=== PATIENT | female | born 1980 | race Caucasian/White ===

== ENCOUNTER → 2016-11-06 | Outpatient (CLI) | payer OTHER ==
--- NOTE | 2016-11-07 08:58 | XR ---
Cervical spine HISTORY: Neck pain 6 views of the cervical spine There is no significant foraminal encroachment evident on oblique views. Cervical vertebral bodies sh ow preserved height and bone mineralization. Anterolisthesis grade 1 C2-3, C3-4 is likely physiologic . Disc spaces are maintained. Loss of lordosis may be due to muscle spasm. IMPRESSION: No fracture or subluxation. Additional findings above.
--- NOTE | 2016-11-07 08:59 | XR ---
Left shoulder HISTORY: Left shoulder pain 3 views of the left shoulder correlated to prior left shoulder dated 09 July 2012 Bone mineralization, joint spaces and alignment are maintained. Left lung apex as visualized is manuel l. There is no fracture or dislocation. IMPRESSION: Stable exam, no significant interval change, no abnormalities evident, shoulder MRI may b e of benefit.
== END | disposition home or self-care (01) ==
LOC: RADXRYALE 15:58
PROVIDERS: ATTEND Physician Assistant Medical
DX: M54.2 Cervicalgia (principal); M62.830 Muscle spasm of back; M25.512 Pain in left shoulder
CPT/HCPCS: 72050

== ENCOUNTER → 2018-09-10 | Outpatient (CLI) | payer OTHER ==
--- NOTE | 2018-09-10 16:29 | XR ---
EXAMINATION TYPE: XR ankle complete LT DATE OF EXAM: 09/10/2018 COMPARISON: NONE HISTORY: Pain TECHNIQUE: 3 views of the left ankle are submitted for evaluation. FINDINGS: There is no evidence for fracture or dislocation. Ankle mortise is intact. Soft tissues are within normal limits. IMPRESSION: 1. No evidence for acute fracture.
== END | disposition home or self-care (01) ==
LOC: RADXRYALE 15:21
PROVIDERS: ATTEND Physician Assistant Medical
DX: S86.002A Unspecified injury of left Achilles tendon, initial encounter (principal)

== ENCOUNTER → 2018-09-23 | Outpatient (CLI) | payer OTHER ==
--- NOTE | 2018-09-23 13:16 | XR ---
EXAMINATION TYPE: XR ankle complete LT DATE OF EXAM: 09/23/2018 COMPARISON: 05/19/2015 HISTORY: Pain FINDINGS: Three views of the ankle demonstrate the ankle mortise to be intact and symmetric. The joint spaces are preserved. The osseous structures are intact. Spur involving the Achilles insertion of the calc aneus noted. IMPRESSION: 1. No definite acute fracture or dislocation, if symptoms persist follow-up study in 7 to 10 days wou ld be suggested.
== END | disposition home or self-care (01) ==
LOC: RADXRYALE 11:54
PROVIDERS: ATTEND Physician Assistant Medical
DX: S86.002A Unspecified injury of left Achilles tendon, initial encounter (principal)

== ENCOUNTER → 2019-07-03 | Outpatient (CLI) | payer OTHER ==
--- NOTE | 2019-07-04 08:25 | US ---
EXAMINATION TYPE: US pelvic complete DATE OF EXAM: 07/03/2019 COMPARISON: NONE CLINICAL HISTORY: N94.6 Dysmenorrhea, R10.2 Pelvic Pain. Pelvic cramping, history of ovarian cysts TECHNIQUE: Transabdominal (TA) Date of LMP: 06/26/19 EXAM MEASUREMENTS: Uterus: 8.7 x 5.0 x 5.7 cm Endometrial Stripe: 0.4 cm Right Ovary: 2.5 x 1.6 x 1.6 cm Left Ovary: 3.5 x 1.6 x 2.2 cm 1. Uterus: Anteverted multiple fibroids with largest = 4.2 x 2.4 x 3.4cm at left anterior fundus 2. Endometrium: appears wnl 3. Right Ovary: follicles noted 4. Left Ovary: follicles noted Spectral, color and waveform doppler imaging shows good arterial and venous flow within the ovaries ; there is no evidence for ovarian torsion. 5. Bilateral Adnexa: appears wnl 6. Posterior cul-de-sac: wnl Urinary bladder is sonolucent. The posterior wall is normal. IMPRESSION: 1. Multiple Uterine fibroids
== END | disposition home or self-care (01) ==
LOC: RADUSMAIN 15:49
PROVIDERS: ATTEND Family Medicine
DX: D25.9 Leiomyoma of uterus, unspecified (principal)
CPT/HCPCS: 76856

== ENCOUNTER 2019-07-14 14:41 | Inpatient (IN) | payer OTHER ==
[2019-07-14] MEDS ORDERED: SODIUM CHLORIDE 0.9% 500 ML 500 ML IV STA (15:38)
[2019-07-14 15:48] LABS: Basophils # (A) 0.1 k/uL (0-0.2); Basophils % (A) 1 %; Eosinophils # (A) 0.2 k/uL (0-0.7); Eosinophils % (A) 2 %; HGB 14.1 gm/dL (11.4-16.0); Lymphocytes # (A) 2.7 k/uL (1.0-4.8); Lymphocytes % (A) 26 %; MCH 30.6 pg (25.0-35.0); MCHC 34.4 g/dL (31.0-37.0); MCV 89.2 fL (80.0-100.0); Mean Platelet Volume 6.4; Monocytes # (A) 0.4 k/uL (0-1.0); Monocytes % (A) 4 %; Neutrophils # (A) 7.1 k/uL (1.3-7.7); Neutrophils % (A) 66 %; Platelet Count 377 k/uL (150-450); RDW 13.5 % (11.5-15.5); WBC 10.7 k/uL (3.8-10.6)
[2019-07-14 15:57] LABS: ALT 27 U/L (9-52); AST 26 U/L (14-36); African American GFR (CKD) >90 (>60 ml/min/1.73 sqM); Albumin 4.2 g/dL (3.5-5.0); Alkaline Phosphatase 78 U/L (38-126); Anion Gap 10 mmol/L; Blood Urea Nitrogen 9 mg/dL (7-17); Calcium 9.4 mg/dL (8.4-10.2); Carbon Dioxide 25 mmol/L (22-30); Chloride 105 mmol/L (98-107); Glucose 101 mg/dL (74-99); Sodium 140 mmol/L (137-145); Total Bilirubin 0.6 mg/dL (0.2-1.3)
[2019-07-14 16:02] LABS: INR 0.9 (<1.2); Partial Thromboplastin Time 25.9 sec (22.0-30.0); Prothrombin Time 9.6 sec (9.0-12.0)
--- NOTE | 2019-07-14 16:13 | CT ---
EXAMINATION TYPE: CT brain wo con DATE OF EXAM: 07/14/2019 COMPARISON: None HISTORY: 39-year-old female left side numbness TECHNIQUE: Examination was done in axial plane without intravenous contrast. Coronal and sagittal r econstructions performed. CT DLP: 1099.4 mGycm Automated exposure control for dose reduction was used. FINDINGS: There is no evidence of acute intracranial hemorrhage, acute ischemic changes, mass, mass-effect, or extra-axial fluid collection. There is no effacement of cerebral sulci or basal subarachnoid cister ns. There is no hydrocephalus. There is no midline shift. Jones-white matter distinction is preserv ed. Trace mucosal thickening ethmoid air cells. Mastoid air cells well pneumatized. Orbits and globes are intact. IMPRESSION: No acute intracranial abnormality seen.
--- NOTE | 2019-07-14 18:37 | ED ---
General Adult HPI - General Chief complaint: Neuro Symptoms/Deficit Stated complaint: right side numbness Time Seen by Provider: 07/14/19 14:50 Source: patient, RN notes reviewed Mode of arrival: ambulatory Limitations: no limitations - History of Present Illness Initial comments: This is a 39-year-old female who states she is here today because she has numbness in her right side and weakness of her right leg. Patient states the numbness started in her third and fourth finger 3 weeks ago and has progressed up her arm and on the side of her face and then included numbness of the right leg. Patient states the weakness started a few days ago in her leg. Patient states the numbness is a tingly sensation not after complete loss of sensation. Patient states she also has that same tingling on her right thorax as well as her right flank. Patient denies any injury or trauma. Patient denies any fever chills. Patient denies any headache. Patient states he is able to move her right foot but it is much slower and with a lot less force on the left foot. Patient denies any visual disturbance or speech disturbance. - Related Data Home Medications Medication Instructions Recorded Confirmed No Known Home Medications 07/14/19 07/14/19 Allergies Allergy/AdvReac Type Severity Reaction Status Date / Time No Known Allergies Allergy Verified 07/14/19 15:59 Review of Systems ROS Statement: Those systems with pertinent positive or pertinent negative responses have been documented in the HPI. ROS Other: All systems not noted in ROS Statement are negative. Past Medical History Past Medical History: No Reported History History of Any Multi-Drug Resistant Organisms: None Reported Past Surgical History: Appendectomy Past Psychological History: No Psychological Hx Reported Smoking Status: Current every day smoker Past Alcohol Use History: Occasional Past Drug Use History: None Reported General Exam - General Exam Comments Initial Comments: GENERAL: Patient is well-developed and well-nourished. Patient is nontoxic and well- hydrated and is in mild distress. ENT: Neck is soft and supple. No significant lymphadenopathy is noted. Oropharynx is clear. Moist mucous membranes. Neck has full range of motion without eliciting any pain. EYES: The sclera were anicteric and conjunctiva were pink and moist. Extraocular movements were intact and pupils were equal round and reactive to light. Eyelids were unremarkable. PULMONARY: Unlabored respirations. Good breath sounds bilaterally. No audible rales rhonchi or wheezing was noted. CARDIOVASCULAR: There is a regular rate and rhythm without any murmurs gallops or rubs. ABDOMEN: Soft and nontender with normal bowel sounds. SKIN: Skin is clear with no lesions or rashes and otherwise unremarkable. NEUROLOGIC: Patient is alert and oriented x3. Cranial nerves II through XII are grossly intact. Patient has sensation of his right arm and leg but she states it doesn't feel the same as the left. Patient has weakness in his plantar and dorsiflexion as well as weakness lifting the right leg. MUSCULOSKELETAL: Normal extremities with adequate strength and full range of motion. Except the right leg is not as strong when doing the full range of motion LYMPHATICS: No significant lymphadenopathy is noted PSYCHIATRIC: Normal psychiatric evaluation. Limitations: no limitations Course Vital Signs 07/14/19 14:47 Temperature 98.3 F Pulse Rate 77 Respiratory 18 Rate Blood Pressure 125/75 O2 Sat by Pulse 98 Oximetry Medical Decision Making - Medical Decision Making CT of the brain shows no acute abnormality. Chest x-ray shows no acute abnormalities. I spoke with Dr. Sanchez agreed to admit the patient admitted the patient I wrote admitting orders - Lab Data Result diagrams: 07/14/19 15:01 07/14/19 15:01 Lab Results 07/14/19 07/14/19 07/14/19 Range/Units 15:01 15:01 15:01 WBC 10.7 H (3.8-10.6) k/uL RBC 4.60 (3.80-5.40) m/uL Hgb 14.1 (11.4-16.0) gm/dL Hct 41.0 (34.0-46.0) % MCV 89.2 (80.0-100.0) fL MCH 30.6 (25.0-35.0) pg MCHC 34.4 (31.0-37.0) g/dL RDW 13.5 (11.5-15.5) % Plt Count 377 (150-450) k/uL Neutrophils % 66 % Lymphocytes % 26 % Monocytes % 4 % Eosinophils % 2 % Basophils % 1 % Neutrophils # 7.1 (1.3-7.7) k/uL Lymphocytes # 2.7 (1.0-4.8) k/uL Monocytes # 0.4 (0-1.0) k/uL Eosinophils # 0.2 (0-0.7) k/uL Basophils # 0.1 (0-0.2) k/uL PT 9.6 (9.0-12.0) sec INR 0.9 (<1.2) APTT 25.9 (22.0-30.0) sec Sodium 140 (137-145) mmol/L Potassium 4.0 (3.5-5.1) mmol/L Chloride 105 (98-107) mmol/L Carbon Dioxide 25 (22-30) mmol/L Anion Gap 10 mmol/L BUN 9 (7-17) mg/dL Creatinine 0.59 (0.52-1.04) mg/dL Est GFR (CKD-EPI)AfAm >90 (>60 ml/min/1.73 sqM) Est GFR (CKD-EPI)NonAf >90 (>60 ml/min/1.73 sqM) Glucose 101 H (74-99) mg/dL Calcium 9.4 (8.4-10.2) mg/dL Total Bilirubin 0.6 (0.2-1.3) mg/dL AST 26 (14-36) U/L ALT 27 (9-52) U/L Alkaline Phosphatase 78 (38-126) U/L Troponin I (0.000-0.034) ng/mL Total Protein 7.0 (6.3-8.2) g/dL Albumin 4.2 (3.5-5.0) g/dL 07/14/19 Range/Units 15:01 WBC (3.8-10.6) k/uL RBC (3.80-5.40) m/uL Hgb (11.4-16.0) gm/dL Hct (34.0-46.0) % MCV (80.0-100.0) fL MCH (25.0-35.0) pg MCHC (31.0-37.0) g/dL RDW (11.5-15.5) % Plt Count (150-450) k/uL Neutrophils % % Lymphocytes % % Monocytes % % Eosinophils % % Basophils % % Neutrophils # (1.3-7.7) k/uL Lymphocytes # (1.0-4.8) k/uL Monocytes # (0-1.0) k/uL Eosinophils # (0-0.7) k/uL Basophils # (0-0.2) k/uL PT (9.0-12.0) sec INR (<1.2) APTT (22.0-30.0) sec Sodium (137-145) mmol/L Potassium (3.5-5.1) mmol/L Chloride (98-107) mmol/L Carbon Dioxide (22-30) mmol/L Anion Gap mmol/L BUN (7-17) mg/dL Creatinine (0.52-1.04) mg/dL Est GFR (CKD-EPI)AfAm (>60 ml/min/1.73 sqM) Est GFR (CKD-EPI)NonAf (>60 ml/min/1.73 sqM) Glucose (74-99) mg/dL Calcium (8.4-10.2) mg/dL Total Bilirubin (0.2-1.3) mg/dL AST (14-36) U/L ALT (9-52) U/L Alkaline Phosphatase (38-126) U/L Troponin I <0.012 (0.000-0.034) ng/mL Total Protein (6.3-8.2) g/dL Albumin (3.5-5.0) g/dL Disposition Clinical Impression: Cerebrovascular accident (CVA) Disposition: ADMITTED IP TO THIS HOSP Referrals: Beto Cortes DO [Primary Care Provider] - 1-2 days Time of Disposition: 19:04
--- NOTE | 2019-07-14 18:40 | XR ---
EXAMINATION TYPE: XR chest 2V DATE OF EXAM: 07/14/2019 COMPARISON: December 14, 2012 HISTORY: Altered mental status TECHNIQUE: Frontal and lateral views of the chest are obtained. FINDINGS: Heart and mediastinum are normal. Lungs are clear. Diaphragm is normal. Bony thorax appear s normal. IMPRESSION: Normal chest. No change.
[2019-07-14 20:41] VITALS: BMI 27.1
[2019-07-14] MEDS: traMADol 50 MG TAB PO PRN (21:57)
[2019-07-15] MEDS: traMADol 50 MG TAB PO PRN ×2 (06:19→14:56)
--- NOTE | 2019-07-15 10:25 | P.HPIM ---
History of Present Illness 39-year-old pleasant female came in with complains of numbness on the right side of the body which is started in the right fingers right hand and to the right side of the whole body including the face and now she states she has numbness on the left side of the body as well in the chest area. Patient is complaining of for pain in the neck and her chiropractor told her it may be a pinched nerve in the neck and she is comparing of back pain as well. Patient denied any visual symptoms denied any pain in the back of the eye doesn't have any history of multiple sclerosis in the past. Does have history of flulike symptoms about a week ago. Patient denied any headache denied any nausea vomiting. Neurology was consult that. Patient denied any other weakness anywhere in the body. Patient's symptoms are fairly persistent at this time Review of Systems REVIEW OF SYSTEMS: CONSTITUTIONAL: No fever, no malaise, no fatigue. HEENT: No recent visual problems or hearing problems. Denied any sore throat. CARDIOVASCULAR: No chest pain, orthopnea, PND, no palpitations, no syncope. PULMONARY: No shortness of breath, no cough, no hemoptysis. GASTROINTESTINAL: No diarrhea, no nausea, no vomiting, no abdominal pain. NEUROLOGICAL: As mentioned in HPI HEMATOLOGICAL: Denies any bleeding or petechiae. GENITOURINARY: Denies any burning micturition, frequency, or urgency. MUSCULOSKELETAL/RHEUMATOLOGICAL: Denies any joint pain, swelling, or any muscle pain. ENDOCRINE: Denies any polyuria or polydipsia. The rest of the 14-point review of systems is negative. Past Medical History Past Medical History: No Reported History History of Any Multi-Drug Resistant Organisms: None Reported Past Surgical History: Appendectomy Additional Past Surgical History / Comment(s): D&C 2017 Past Anesthesia/Blood Transfusion Reactions: No Reported Reaction Past Psychological History: No Psychological Hx Reported Smoking Status: Current some day smoker Past Alcohol Use History: Occasional Additional Past Alcohol Use History / Comment(s): smokes half a pack a day. Past Drug Use History: None Reported - Past Family History Father Family Medical History: Myocardial Infarction (DC) Mother Family Medical History: CVA/TIA Medications and Allergies Home Medications Medication Instructions Recorded Confirmed Type No Known Home Medications 07/14/19 07/14/19 History Allergies Allergy/AdvReac Type Severity Reaction Status Date / Time No Known Allergies Allergy Verified 07/14/19 15:59 Physical Exam Vitals: Vital Signs Temp Pulse Pulse Resp BP BP Pulse Ox 07/15/19 08:00 98.2 F 72 18 103/69 98 07/15/19 04:00 98.2 F 67 18 108/63 96 07/14/19 23:04 83 18 07/14/19 23:02 98.1 F 83 18 112/66 100 07/14/19 20:30 99.4 F 63 18 122/88 99 07/14/19 20:00 63 18 07/14/19 19:00 98.2 F 77 20 132/72 98 07/14/19 14:47 98.3 F 77 18 125/75 98 Intake and Output 07/14/19 07/15/19 07/15/19 22:59 06:59 14:59 Intake Total 480 Balance 480 Intake: Oral 480 Other: Voiding Method Toilet Toilet Toilet # Voids 1 Weight 78.78 kg PHYSICAL EXAMINATION: GENERAL: The patient is alert and oriented x3, not in any acute distress. Well developed, well nourished. HEENT: Pupils are round and equally reacting to light. EOMI. No scleral icterus. No conjunctival pallor. Normocephalic, atraumatic. No pharyngeal erythema. No thyromegaly. CARDIOVASCULAR: S1 and S2 present. No murmurs, rubs, or gallops. PULMONARY: Chest is clear to auscultation, no wheezing or crackles. ABDOMEN: Soft, nontender, nondistended, normoactive bowel sounds. No palpable organomegaly. MUSCULOSKELETAL: No joint swelling or deformity. EXTREMITIES: No cyanosis, clubbing, or pedal edema. NEUROLOGICAL: As mentioned in HPI SKIN: No rashes. Results CBC & Chem 7: 07/14/19 15:01 07/14/19 15:01 Labs: Abnormal Lab Results - Last 24 Hours (Table) 07/14/19 07/14/19 07/14/19 Range/Units 15: 15: 15: WBC 10.7 H (3.8-10.6) k/uL Glucose 101 H (74-99) mg/dL LDL Cholesterol, Calc 115 H (0-99) mg/dL HDL Cholesterol 39 L (40-60) mg/dL Thrombosis Risk Factor Assmnt - Choose All That Apply Any of the Below Risk Factors Present?: No Other Risk Factors: No Other congenital or acquired thrombophilia - If yes, enter type in comment: No Thrombosis Risk Factor Assessment Level: Very Low Risk Assessment and Plan Plan: -Numbness in the right side of the body: Patient has multiple other areas of focal weakness makes us suspicious for multiple sclerosis. Considering her back and neck pain, patient will need MRI with contrast of the head and cervical spine for: Spine. Neurology will evaluate the patient and will leave the decision of those tests to neurology. The other consideration is ascending radiculopathy from viral infection possibility is low. -Mild leukocytosis reactive no signs or symptoms of infection -Nicotine abuse: Counseling was provided -DVT prophylaxis early ambulation
[2019-07-15] MEDS: NICOTINE 14MG/24HR PATCH TRANSDERM SCH (12:04)
--- NOTE | 2019-07-15 13:41 | P.CNNES ---
History of Present Illness Consult date: 07/15/19 Reason for Consult: Concern for stroke Chief complaint: Right sided numbness and weakness History of Present Illness: REFERRING PHYSICIAN: Dr. Adelfo Schmdit HISTORY OF PRESENT ILLNESS: Thank you for allowing me to evaluate Ms. Gerard Peralta. Ms. Peralta is a 39-year-old woman with no known past medical history presenting with right-sided numbness and right leg weakness. Patient states that about 3 weeks ago, she started having numbness in her R finger tips and over the last 3 weeks, the numbness came to involve almost her entire body except her L face, LLE and L three fingers. On 07/03/19, patient went to the chiropractor and was told that the numbness was from her neck. A few days after this visit, patient had flu-like symptoms of body ache, diarrhea, fever, and low back pain (patient with hx of low back pain) and these symptoms went away after 2 days. Some people at work were sick along with the patient. Since last Sunday, she started feeling heaviness in her RLE. Patient denies any headache, nausea, vomiting, double/blurry vision, dizziness, urinary retention/incontinence, diarrhea/constipation. Pt denies ever having symptoms of vision changes, numbnes s, tingling or weakness in the past. Patient reports 1 miscarriage for which she needed a D&C. She has 1 daughter. No family history of clotting disorder. PAST MEDICAL HISTORY: None reported PAST SURGICAL HISTORY: Appendectomy HOME MEDICATIONS: Nonw ALLERGIES: NO KNOWN DRUG ALLERGIES SOCIAL HISTORY: Current every day smoker FAMILY HISTORY: No hx of MS, autoimmune disease. Mother had a hemorrhagic stroke at age 40. REVIEW OF SYSTEMS: The 14 systems are reviewed and no additional points are identified compared to the review of systems documented history and physical PHYSICAL EXAMINATION: VITAL SIGNS: T 98.2 HR 67 RR 18 BP 108/63 O2 sat 96% on room air GEN.: NAD, pleasant and cooperative HEENT: NCAT, sclera without icterus NECK: Supple SKIN AND EXTREMITIES: Warm to touch, no edema NEURO: MENTAL STATUS: Patient alert and oriented to self, place, time. Able to name the current president. Speech fluent, able to name and repeat, following all commands readily. No right and left disorientation, neglect. CRANIAL NERVES II THROUGH XII: II: Pupils are equal and reactive to light symmetrically. No afferent pupillary defect. Visual lomeli are intact. III, IV, : No ptosis. Extraocular movements full. No nystagmus. V: R face feels numb but intact to temperature and pinprick V1-3. VII. No clear facial asymmetry. VIII: Hearing intact to finger rub bilaterally. IX, X: Symmetric pa late elevation. XI: Shoulder shrug intact. XII: Tongue midline without fasciculation or atrophy. MOTOR: Normal bulk/tone. No pronator drift or tremor. Strength is 5/5 throughout all 4 extremities. SENSORY: Decreased to temperature, light touch and pinprick in b/l UE and LE, more distal than proximal. Sensation decreased to temperature and pinprick below T2 level in chest and abdomen but around T11/12 level in the back. Intact to vibration and proprioception. REFLEXES: 2+ LE 1+ UE. Toes are upgoing bilaterally. No clonus. Roby's is absent COORDINATION: Finger to nose and heel to grover intact. No dysmetria. GAIT: Narrow-based and stable. Able to toe/heel/tandem walk DIAGNOSTIC TESTING: LABORATORY: WBC 10.7 Hgb 14.1 Plt 377 Na 140 K 4.0 Cl 105 CO2 25 BUN 9 Cr 0.59 Glucose 101 AST 26 ALT 27 AlkPhos 78 Troponin <0.012 TC 170 LDL 115 HDL 39 TSH 1.090 IMAGING: CT head without contrast 07/14/2019: No acute intracranial abnormalities seen ASSESSMENT: Ms. Peralta is a 39-year-old woman with no known past medical history presenting with right-sided numbness and right leg weakness. Patient reports recent flu-li ke symptoms, but patient's symptoms appear to have began prior to having her flu-like symptoms. At this time, differential include transverse myelitis vs. new diagnosis of multiple sclerosis vs. possible AIDP although lower on the ddx at this time as her symptoms began with her R finger tip numbness with no ascending pattern and pt with no objective weakness. RECOMMENDATIONS: 1. MRI brain/c-spine/t-spine/l-spine w/ and w/o contrast 2. Will check vitamin D level 3. Neurology will continue to follow Past Medical History Past Medical History: No Reported History History of Any Multi-Drug Resistant Organisms: None Reported Past Surgical History: Appendectomy Additional Past Surgical History / Comment(s): D&C 2017 Past Anesthesia/Blood Transfusion Reactions: No Reported Reaction Past Psychological History: No Psychological Hx Reported Smoking Status: Current some day smoker Past Alcohol Use History: Occasional Additional Past Alcohol Use History / Comment(s): smokes half a pack a day. Past Drug Use History: None Reported - Past Family History Father Family Medical History: Myocardial Infarction (NM) Mother Family Medical History: CVA/TIA Medications and Allergies Home Medications Medication Instructions Recorded Confirmed Type No Known Home Medications 07/14/19 07/14/19 History Allergies Allergy/AdvReac Type Severity Reaction Status Date / Time No Known Allergies Allergy Verified 07/14/19 15:59 Physical Examination - Vital Signs Vital Signs: Vital Signs Temp Pulse Pulse Resp BP BP Pulse Ox 07/15/19 04:00 98.2 F 67 18 108/63 96 07/14/19 23:04 83 18 07/14/19 23:02 98.1 F 83 18 112/66 100 07/14/19 20:30 99.4 F 63 18 122/88 99 07/14/19 20:00 63 18 07/14/19 19:00 98.2 F 77 20 132/72 98 07/14/19 14:47 98.3 F 77 18 125/75 98 Intake and Output 07/14/19 07/15/19 07/15/19 22:59 06:59 14:59 Intake Total 480 Balance 480 Intake: Oral 480 Other: Voiding Method Toilet Toilet # Voids 1 Weight 78.78 kg Results - Laboratory Findings CBC and BMP: 07/14/19 15:01 07/14/19 15:01 Abnormal Lab Findings: Abnormal Labs 07/14/19 07/14/19 07/14/19 15:01 15:01 15:01 WBC 10.7 H Glucose 101 H LDL Cholesterol, Calc 115 H HDL Cholesterol 39 L
[2019-07-15 14:54] LABS: Hemoglobin A1C 5.6 % (4.0-6.0)
[2019-07-15] MEDS: IBUPROFEN 800 MG TAB PO PRN (21:37)
[2019-07-16] MEDS: IBUPROFEN 800 MG TAB PO PRN ×2 (05:27→21:36)
[2019-07-16] MEDS: NICOTINE 14MG/24HR PATCH TRANSDERM SCH (08:12)
[2019-07-16] MEDS ORDERED: ERGOCALCIFEROL 50,000 UNIT CAP PO SCH (09:00)
--- NOTE | 2019-07-16 09:55 | P.PN ---
Subjective 39-year-old the admitted with numbness in the right side of the body along with some areas in the left side concern is multiple sclerosis. Patient's MRIs are pending at this time patient will undergo cervical throat: Lumbar spine MRI along with the MRA of the head. Constitutional: Denied any fatigue denied any fever. Cardio vascular: denied any chest pain, palpitations Gastrointestinal denied any nausea vomiting Pulmonary: Denied any shortness of breath cough Neurologic continues to have tingling numbness All inpatient medications were reviewed and appropriate changes in these medications as dictated in the interval history and assessment and plan. Objective - Vital Signs Vital signs: Vital Signs Temp 98.0 F 07/16/19 04:00 Pulse 65 07/16/19 04:00 Resp 16 07/16/19 04:00 BP 104/52 07/16/19 04:00 Pulse Ox 99 07/16/19 04:00 Intake & Output 07/15/19 07/16/19 07/16/19 18:59 06:59 18:59 Intake Total 960 540 Balance 960 540 Weight 79.8 kg Intake: Oral 960 540 Other: Voiding Method Toilet Toilet # Voids 4 1 - Exam PHYSICAL EXAMINATION: GENERAL: The patient is alert and oriented x3, not in any acute distress. Well developed, well nourished. HEENT: Pupils are round and equally reacting to light. EOMI. No scleral icterus. No conjunctival pallor. Normocephalic, atraumatic. No pharyngeal erythema. No thyromegaly. CARDIOVASCULAR: S1 and S2 present. No murmurs, rubs, or gallops. PULMONARY: Chest is clear to auscultation, no wheezing or crackles. ABDOMEN: Soft, nontender, nondistended, normoactive bowel sounds. No palpable organomegaly. MUSCULOSKELETAL: No joint swelling or deformity. EXTREMITIES: No cyanosis, clubbing, or pedal edema. NEUROLOGICAL: As mentioned in HPI SKIN: No rashes. - Labs CBC & Chem 7: 07/14/19 15:01 07/14/19 15:01 Labs: Abnormal Lab Results - Last 24 Hours (Table) 07/14/19 Range/Units 15:01 Vitamin D 25-Hydroxy 25.5 L (30.0-100.0) ng/mL Assessment and Plan Plan: -Numbness in the right side of the body: Patient has multiple other areas of focal weakness makes us suspicious for multiple sclerosis. Considering her back and neck pain, patient will need MRI with contrast of the head and cervical sp ine for: Spine. Neurology evaluated the patient. The other consideration is ascending radiculopathy from viral infection possibility is low. Will undergo MRI today. -Mild leukocytosis reactive no signs or symptoms of infection -Nicotine abuse: Counseling was provided -DVT prophylaxis early ambulation
--- NOTE | 2019-07-16 12:21 | P.PN ---
Progress Note - Text Progress Note Date: 07/16/19 SUBJECTIVE/INTERVAL EVENTS: No acute overnight event. Patient with no worsening numbness, tingling or weakness. Patient is anxious about getting her MRI done today PHYSICAL EXAMINATION: VITAL SIGNS: T 97.8 HR 60 RR 20 BP 132/73 O2 sat 96% on RA GEN.: NAD, pleasant and cooperative HEENT: NCAT, sclera without icterus NECK: Supple SKIN AND EXTREMITIES: Warm to touch, no edema NEURO: MENTAL STATUS: Patient alert and oriented to self, place, time. Able to name the current president. Speech fluent, able to name and repeat, following all commands readily. No right and left disorientation, neglect. CRANIAL NERVES II THROUGH XII: II: Pupils are equal and reactive to light symmetrically. No afferent pupillary defect. Visual lomeli are intact. III, IV, : No ptosis. Extraocular movements full. No nystagmus. V: R face feels numb but intact to temperature and pinprick V1-3. VII. No clear facial asymmetry. VIII: Hearing intact to finger rub bilaterally. IX, X: Symmetric palate elevation. XI: Shoulder shrug intact. XII: Tongue midline without fasciculation or atrophy. MOTOR: Normal bulk/tone. No pronator drift or tremor. Strength is 5/5 throughout all 4 extremities. SENSORY: Decreased to temperature, light touch and pinprick in b/l UE and LE, more distal than proximal. Sensation decreased to temperature and pinprick below T2 level in chest and abdomen but around T11/12 level in the back. Intact to vibration and proprioception. REFLEXES: 2+ LE 1+ UE. Toes are upgoing bilaterally. No clonus. Roby's is absent COORDINATION: Finger to nose and heel to grover intact. No dysmetria. GAIT: Narrow-based and stable. Able to toe/heel/tandem walk DIAGNOSTIC TESTING: LABORATORY: WBC 10.7 Hgb 14.1 Plt 377 Na 140 K 4.0 Cl 105 CO2 25 BUN 9 Cr 0.59 Glucose 101 AST 26 ALT 27 AlkPhos 78 Troponin <0.012 TC 170 LDL 115 HDL 39 TSH 1.090 Vitamin D level 25.5 IMAGING: CT head without contrast 07/14/2019: No acute intracranial abnormalities seen ASSESSMENT: Ms. Peralta is a 39-year-old woman with no known past medical history presenting with right-sided numbness and right leg weakness. Patient reports recent flu- like symptoms, but patient's symptoms appear to have began prior to having her flu-like symptoms. At this time, differential include transverse myelitis vs. new diagnosis of multiple sclerosis vs. possible AIDP although lower on the ddx at this time as her symptoms began with her R finger tip numbness with no ascending pattern and pt with no objective weakness. RECOMMENDATIONS: 1. MRI brain/c-spine/t-spine/l-spine w/ and w/o contrast 2. Low Vitamin D level; will start Vitamin D2 supplementation 3. Neurology will continue to follow
[2019-07-16] MEDS ORDERED: HYDROcodone/APAP 7.5-325MG 1 EACH TAB PO ONE (13:16)
--- NOTE | 2019-07-16 13:34 | MR ---
EXAMINATION TYPE: MR walker/smooth wo con DATE OF EXAM: 07/16/2019 1:04 PM COMPARISON: NONE HISTORY: Numbness involving b/l UE and LE and trunk Multiplanar MultiSpin echo imaging of the thoracic spine was performed. Disc spaces: No evidence for herniation protrusion or significant degenerative disc disease. Spinal canal: No evidence for canal stenosis. No intrinsic or extrinsic lesion. Thoracic spinal cord: Subtle T2 lesion noted within the thoracic spinal cord at the approximate T9-T1 0 level measuring 1.3 cm in length and 4.5 mm AP dimension. This could reflect a plaque of demyelinat ion however lesion is difficult to exclude. Contrast-enhanced evaluation is advised. No additional co rd lesions are suspected at this time. Paraspinal soft tissues: No evidence for paraspinal mass. No destructive lesions seen. Vertebral segments: No evidence for fracture. Small TA T meningioma identified. IMPRESSION: 1. I recommend contrast enhanced evaluation of the thoracic spine for a subtle T2 lesions noted at th e T9 level as discussed above. EXAMINATION TYPE: MR davalos wo con DATE OF EXAM: 07/16/2019 1:04 PM COMPARISON: NONE HISTORY: Numbness involving b/l UE and LE and trunk Multiplanar, MultiSpin echo imaging of the lumbar spine was performed. L1-L2: Normal disc appearance without desiccation. No herniation, protrusion or disc bulging. No ca nal stenosis is present. Foramina are patent bilaterally. L2-L3: Normal disc appearance without desiccation. No herniation, protrusion or disc bulging. No ca nal stenosis is present. Foramina are patent bilaterally. L3-L4: Normal disc appearance without desiccation. No herniation, protrusion or disc bulging. No ca nal stenosis is present. Foramina are patent bilaterally. L4-L5: Moderate disc desiccation. Disc protrusion noted posteriorly centrally. Mild effacement ventra l thecal sac. No evidence for central stenosis or foraminal encroachment. L5-S1: Normal disc appearance without desiccation. No herniation, protrusion or disc bulging. No ca nal stenosis is present. Foramina are patent bilaterally. Lumbar segments are intact. No paraspinal masses are identified. Conus medullaris has a normal appe arance. IMPRESSION: 1. Disc desiccation and mild protrusion at L4-5.
--- NOTE | 2019-07-16 15:15 | MR ---
EXAMINATION TYPE: MR brain/cspine wo/w DATE OF EXAM: 07/16/2019 COMPARISON: CT brain July 14, 2019 HISTORY: Patient presents with numbness in extremities and trunk, severe back pain. Concern for MS TECHNIQUE: Multiplanar, multisequence images of the brain and brainstem cervical spine are all performed without and with IV contrast, utilizing 7.5 mL intravenous Gadavist gadolinium contrast is administered intr avenously. Demyelinating disease protocol with additional Sagittal Flair sequence performed of brain and brainstem and PD sagittal sequences cervical spine all acquired.. FINDINGS: BRAIN: T2 Lesions Present : Yes Approximate Number of Lesions: 2-4 Size of Reference Lesion(s): 1. 2 mm focus right frontal deep white matter axial image 24 and sagittal image 22 2 second 2 mm focus right parietal white matter axial image 22 and sagittal image 29. Enhancing Lesio n(s) Present: No T1 Hypointense Lesion(s) Present: No Change from Prior: N/A Diffusion weighted images demonstrate no evidence of a recent infarct or other diffusion abnormality. There is no worrisome extra-axial fluid collection. The ventricular system and cisternal spaces ar e normal in size and appearance. The brain volume is age appropriate. Midline structures demonstrate normal morphology. The craniocervical junction appears within normal limits. Post contrast images demonstrate no abnormal enhancement. The dural venous sinuses appear pa tent. The visualized sinuses are clear and the globes are intact. IMPRESSION: Minimal nonspecific white matter changes. No suspicious enhancement. MRI CERVICAL SPINE: FINDINGS: Sagittal images of the cervical spine show the craniocervical junction to appear within nor mal limits. The cervical and upper thoracic spinal cord is normal in course and caliber. . There is faint T2 hyperintense lesion posterior inferior C2 level sagittal image 7. There is some heterogenei ty may be elevation of motion or CSF pulsation artifact without definitive additional focal lesion. A lignment is anatomic. The vertebral body and intravertebral disk heights are normal. The bone marro w signal intensity is within normal limits. No suspicious enhancement is seen. Axial images at C4-C5 level show right foraminal spur disc complex causing asymmetric mild right-side d neural foraminal narrowing acknowledged 32 corresponding to sagittal image 9. Axial images at C5-C6 levels from broad-based posterior disc protrusion minimally effacing anterior t hecal sac and causing moderate left and mild right-sided neural foraminal narrowing. Remainder cervic al levels but within normal limits on axial images. Subtle posterior lesion inferior C2 level midline axial image 48 is confirmed. IMPRESSION: Cervical cord lesion posterior inferior C2 level. No enhancing lesions are evident.
[2019-07-16] MEDS ORDERED: PANTOPRAZOLE 40 MG TABLET PO STA (16:23)
[2019-07-16] MEDS ORDERED: methylPREDNISolone SOD SUCC 1,000 MG in SODIUM CHLORIDE 0.9% 250 ML IVPB STA (16:24)
[2019-07-16 19:00] LABS: Glucose,Whole Blood 109 mg/dL (75-99)
[2019-07-16] MEDS: traMADol 50 MG TAB PO PRN (23:57)
[2019-07-16] MEDS: MAGNESIUM HYDROXIDE 2,400 MG/10 ML CUP PO PRN (23:59)
[2019-07-17] MEDS ORDERED: HYDROcodone/APAP 5-325MG 1 EACH TAB PO STA (00:07)
[2019-07-17 04:00] LABS: Glucose,Whole Blood 156 mg/dL (75-99)
[2019-07-17 06:18] LABS: Glucose,Whole Blood 146 mg/dL (75-99)
[2019-07-17] MEDS: MAGNESIUM HYDROXIDE 2,400 MG/10 ML CUP PO PRN (06:53)
[2019-07-17] MEDS: INSULIN ASPART (NovoLOG) 100 UNIT/ML VIAL SQ SCH ×3 (08:41→18:23)
[2019-07-17] MEDS: NICOTINE 14MG/24HR PATCH TRANSDERM SCH (09:40)
[2019-07-17] MEDS ORDERED: methylPREDNISolone SOD SUCC 1,000 MG in SODIUM CHLORIDE 0.9% 250 ML IVPB STA (11:10)
--- NOTE | 2019-07-17 11:16 | P.PN ---
Progress Note - Text Progress Note Date: 07/17/19 SUBJECTIVE/INTERVAL EVENTS: No acute overnight event. Patient was started on high-dose steroids yesterday. Patient states that her back pain has gotten worse, but the numbness in her RLE is improving. PHYSICAL EXAMINATION: VITAL SIGNS: T 97.8 HR 60 RR 20 BP 132/73 O2 sat 96% on RA GEN.: NAD, pleasant and cooperative HEENT: NCAT, sclera without icterus NECK: Supple SKIN AND EXTREMITIES: Warm to touch, no edema NEURO: MENTAL STATUS: Patient alert and oriented to self, place, time. Able to name the current president. Speech fluent, able to name and repeat, following all commands readily. No right and left disorientation, neglect. CRANIAL NERVES II THROUGH XII: II: Pupils are equal and reactive to light symmetrically. No afferent pupillary defect. Visual lomeli are intact. III, IV, : No ptosis. Extraocular movements full. No nystagmus. V: R face feels numb but intact to temperature and pinprick V1-3. VII. No clear facial asymmetry. VIII: Hearing intact to finger rub bilaterally. IX, X: Symmetric palate elevation. XI: Shoulder shrug intact. XII: Tongue midline without fasciculation or atrophy. MOTOR: Normal bulk/tone. No pronator drift or tremor. Strength is 5/5 throughout all 4 extremities. SENSORY: Decreased to temperature, light touch and pinprick in b/l UE and LE, more distal than proximal. Sensation decreased to temperature and pinprick below T2 level in chest and abdomen but around T11/12 level in the back. Intact to vibration and proprioception. REFLEXES: 2+ LE 1+ UE. Toes are upgoing bilaterally. No clonus. Roby's is absent COORDINATION: Finger to nose and heel to grover intact. No dysmetria. GAIT: Narrow-based and stable. Able to toe/heel/tandem walk DIAGNOSTIC TESTING: LABORATORY: WBC 10.7 Hgb 14.1 Plt 377 Na 140 K 4.0 Cl 105 CO2 25 BUN 9 Cr 0.59 Glucose 101 AST 26 ALT 27 AlkPhos 78 Troponin <0.012 TC 170 LDL 115 HDL 39 TSH 1.090 Vitamin D level 25.5 IMAGING: MRI brain and cervical spine with and without contrast 07/16/2019: Minimal nonspecific white matter changes in the brain. No suspicious enhancement. Cervical cord lesion posterior inferior C2 level. No enhancing lesions are evident. MRI thoracic and lumbar spine without contrast 07/16/2019: Subtle T2 lesions noted at the T9 level. CT head without contrast 07/14/2019: No acute intracranial abnormalities seen ASSESSMENT: Ms. Peralta is a 39-year-old woman with no known past medical history presenting with right-sided numbness and right leg weakness. Patient reports recent flu- like symptoms, but patient's symptoms appear to have began prior to having her flu-like symptoms. At this time, differential include transverse myelitis vs. new diagnosis of multiple sclerosis vs. possible AIDP although lower on the ddx at this time as her symptoms began with her R finger tip numbness with no ascending pattern and pt with no objective weakness. MRI brain/c-spine/t-spine/l-spine (only brain and c-spine were done with contrast), showing subtle T2 hyperintense lesion in C2 and T9 level. Ddx at this time remains the same. RECOMMENDATIONS: 1. High dose methylprednisolone 1g IV x3-5 days; will decide duration depending on patient's symptom change. Pt would like to get steroids on outpatient basis. I will contact patient while patient's getting her steroids to follow her progress. 2. q6h blood glucose check; PPI 3. LP today for CSF studies 4. Low Vitamin D level; will start Vitamin D2 supplementation 5. Neurology will continue to follow
[2019-07-17 11:55] LABS: Glucose,Whole Blood 163 mg/dL (75-99)
--- NOTE | 2019-07-17 13:46 | P.DS ---
Providers Date of admission: 07/14/19 19:06 Attending physician: Krys Sanchez Consults: 07/14/19 19:05 Consult Physician Routine Consulting Provider: Tiara Grimes Reason/Comments: CVA Do you want consulting provider notified?: Yes [facility] Course: 39-year-old the admitted with numbness in the right side of the body along with some areas in the left side concern is multiple sclerosis. Patient's MRIs are pending at this time patient will undergo cervical throat: Lumbar spine MRI along with the MRA of the head. 07/17/2019 Patient had an MRA of the spine which showed hyper intense lesion on T2 and cervical area the differentials include transverse myelitis, multiple sclerosis cannot be ruled out acute inflammatory demyelinating polyneuritis is another consideration. Neurology validate the patient and they're recommending IV steroids for total nephritis patient received 2 days patient will come back to the infusion center for 3 more days and follow with neurology as an outpatient. Patient's vitamin D levels or minimally lower 25 patient is being discharged on vitamin D supplementation patient also has couple areas in the thoracolumbar spine area and cervical spine area where she had a degenerative arthritis and bony spurs which is contributing to her pain which is expected to improve with the systemic steroids patient will also be discharged on GI prophylaxis. Neurologist at morning CSF analysis and patient will be discharged after lumbar puncture. PHYSICAL EXAMINATION: GENERAL: The patient is alert and oriented x3, not in any acute distress. Well developed, well nourished. HEENT: Pupils are round and equally reacting to light. EOMI. No scleral icterus. No conjunctival pallor. Normocephalic, atraumatic. No pharyngeal erythema. No thyromegaly. CARDIOVASCULAR: S1 and S2 present. No murmurs, rubs, or gallops. PULMONARY: Chest is clear to auscultation, no wheezing or crackles. ABDOMEN: Soft, nontender, nondistended, normoactive bowel sounds. No palpable organomegaly. MUSCULOSKELETAL: No joint swelling or deformity. EXTREMITIES: No cyanosis, clubbing, or pedal edema. NEUROLOGICAL: As mentioned in HPI SKIN: No rashes. 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 Ergocalciferol [Vitamin D2 (DRISDOL)] 50,000 unit PO Q72H #14 cap Discharge Medication List Ergocalciferol [Vitamin D2 (DRISDOL)] 50,000 unit PO Q72H #14 cap 07/17/19 [Rx] Omeprazole [PriLOSEC] 40 mg PO AC-BRKFST #5 capsule. 07/17/19 [Rx] Follow up Appointment(s)/Referral(s): Stefany Walls MD [STAFF PHYSICIAN] - 08/01/19 9:00 am (Sunday) Beto Cortes DO [Primary Care Provider] - 07/22/19 1:20 pm (Sunday with Caroline) Patient Instructions/Handouts: Lumbar Puncture (DC) Activity/Diet/Wound Care/Special Instructions: pt to receive IV Solumedrol at 12:45 Sun07-18-2019 at [facility] ([phone] opt 2) and 12:45 on sat 10-5 and Sun 10-6 at the Pediatric unit ([phone]) at [facility] Discharge Disposition: HOME SELF-CARE
[2019-07-17 14:39] LABS: Glucose,CSF 103 mg/dL (40-70); Total Protein,CSF 38 mg/dL (12-60)
[2019-07-17 14:54] VITALS: RESP 16
[2019-07-17 15:26] VITALS: TEMP 98.2
[2019-07-17 15:43] LABS: Appearance,CSF Clear; CSF Tube Number 4; Nucleated Cells, CSF 7 u/L (0-5)
[2019-07-17 15:45] LABS: Red Blood Cell,CSF 1 u/L (0-10)
[2019-07-17 15:46] LABS: Mononuclear WBC,CSF 100 %; Polynuclear WBC,CSF 0 %
[2019-07-17 17:33] LABS: Glucose,Whole Blood 196 mg/dL (75-99)
[2019-07-17 18:40] VITALS: BP 122/69; PULSE 84
--- NOTE | 2019-07-18 04:36 | FL ---
PROCEDURE: Lumbar puncture. DATE: 07/17/2019 CLINICAL HISTORY: 39-year-old female with numbness and pain. COMPLICATIONS: None The patient and the patient's vital signs were monitored by qualified independent radiology personnel . TECHNIQUE: The procedure and potential risks were explained to patient and an informed consent was obtained with teach back. Site and side was verified. A time out was performed. The patient was placed prone on the fluoroscopy table and the L3-L4 level was localized and the skin was marked and was prepped and draped in the usual sterile fashion. Lidocaine was used for local anesthesia. Utilizing fluoroscopic guidance a 22-gauge spinal needle was placed through the skin and into the subarachnoid space. Approximately 8 mL of clear, colorless cerebral spinal fluid was obtained. The patient tolerated the procedure well and was sent back to inpatient room in satisfactory conditio n. The fluid was sent to the lab for analysis. The estimated blood loss was minimal. The patient's condition was unchanged following the procedure. Fluoroscopy time: 19 seconds Total images: One image acquired. IMPRESSION: Successful accumulation of 8 mL of clear CSF.
[2019-07-18 13:17] LABS: IgG - CSF 3.4 mg/dL (0.0 - 3.4); IgG Synthesis Rate 6.86 mg/day (0.00 - 3.00); Immunoglobulin G 962 mg/dL (700 - 1600)
== END 2019-07-17 19:24 | disposition home or self-care (01) | DRG 96 ==
LOC: EC 14:41 → 3SCARD 19:06
PROVIDERS: ADMIT Internal Medicine; ATTEND Internal Medicine
PROC: 05HB33Z Insertion of Infusion Device into Right Basilic Vein, Percutaneous Approach (ICD-10-PCS; principal; 2019-07-17 11:20)
DX: G61.0 Guillain-Barre syndrome (principal); G35 Multiple sclerosis; D72.829 Elevated white blood cell count, unspecified; F17.210 Nicotine dependence, cigarettes, uncomplicated; M47.892 Other spondylosis, cervical region; M47.895 Other spondylosis, thoracolumbar region; M77.9 Enthesopathy, unspecified; E55.9 Vitamin D deficiency, unspecified; Z90.49 Acquired absence of other specified parts of digestive tract; Z71.6 Tobacco abuse counseling; Z82.49 Family history of ischemic heart disease and other diseases of the circulatory system; Z82.3 Family history of stroke
CPT/HCPCS: 36415; 62270; 70450; 70553; 71046; 72146; 72148; 72156; 80053; 80061; 82040; 82042; 82306; 82784; 82945; 83036; 83916; 84157; 84443; 84484; 85025; 85610; 85730; 87070; 87205; 88108; 89050; 96360; 96361; 99285

== ENCOUNTER → 2019-09-03 | Outpatient (CLI) | payer OTHER ==
[2019-09-03 20:37] LABS: Rheumatoid Factor, Qnt <4 IU/mL (0-13)
[2019-09-03 20:48] LABS: HIV 1 AB Non-Reactive (Non-Reactive); HIV 2 AB Non-Reactive (Non-Reactive); HIV AB P24 Non-Reactive (Non-Reactive); HIV P24 AG Non-Reactive (Non-Reactive)
[2019-09-03 21:17] LABS: Anti-DNA, DS unit <1.0 IU/mL; Anti-Smith Ab Interp NEGATIVE (NEGATIVE); DNA Double-Stranded NEGATIVE (NEGATIVE)
[2019-09-04 13:54] LABS: C-ANCA <1:20 Titer (<1:20)
[2019-09-05 14:52] LABS: HTLV-1 and 2 (EIA) Negative (Negative)
== END ==
LOC: LABWHC1 11:09
PROVIDERS: ATTEND Psychiatry & Neurology Neurology
DX: G37.9 Demyelinating disease of central nervous system, unspecified (principal)
CPT/HCPCS: 36415; 82607; 84630; 86038; 86160; 86225; 86235; 86255; 86431; 86618; 86790; 87390

== ENCOUNTER → 2019-09-03 | Outpatient (CLI) | payer OTHER ==
--- NOTE | 2019-09-03 14:25 | MR ---
MRI CERVICAL SPINE: MRI THORACIC SPINE: CLINICAL HISTORY: Demyelinating disease. Neck pain and mid back pain with numbness into extremities. TECHNIQUE: Multiplanar, multisequence imaging of the cervical and thoracic spine are performed withou t and with IV contrast, 7.5 cc of gadolinium was given intravenously. Demyelinating disease protocol with additional PD sagittal sequence. COMPARISON: Prior MRI cervical and thoracic spine July 16, 2019. . FINDINGS: C-SPINE: Sagittal images of the cervical spine show the craniocervical junction to remain within normal limits . The cervical and upper thoracic spinal cord remains normal in course and caliber. Subtle posterio r T2 hyperintense focus inferior C2 level sagittal image 7 is felt significant change from prior. No definitive new cervical spinal cord lesions. Alignment is stable and satisfactory. The vertebral bod y and intravertebral disk heights remain normal. The bone marrow signal intensity remains within nor mal limits. No suspicious postcontrast enhancement. Axial images confirm subtle posterior T2 hyperintense lesion in the midline inferior C2 level on axia l image 48. Axial images at C4-C5 level show persistent right foraminal disc protrusion causing fairly moderate r ight-sided neural foraminal narrowing axial image 30, no significant change from prior. Axial images at C5-C6 also lobulated broad-based posterior disc protrusion minimally effacing anterio r thecal sac and causing mild to moderate left greater than right bilateral neural foraminal narrowin g. No significant change from prior. No new or worsening disc herniations are evident on axial images. IMPRESSION: Overall stable findings. Some degenerative changes mid cervical spine as detailed above. Subtle lesion posterior inferior C2 level felt stable. No new or enhancing lesions are seen. T-SPINE: FINDINGS: Spinal cord shows normal course, caliber, and signal as it courses the thoracic spine on cu rrent study on sagittal images. Vertebral body heights and alignment are satisfactory. Disc space hei ghts and hydration are maintained. Bone marrow signal intensity is preserved. No suspicious enhanceme nt is seen. Review of the axial images redemonstrate suspicious subtle T2 hyperintense lesion posterior right lat eral aspect of spinal cord seen best axial images 10 through 12 at the T9-T10 disc space level. This is still not well identified on sagittal images. No definitive new additional cord lesions. No suspi cious enhancement. Visualized thorax and upper abdomen show no new suspicious abnormality. IMPRESSION: Stable subtle T2 hyperintense lesion posterior right lateral spinal cord T9-T10 disc spac e level likely reflecting demyelinating plaque. No new or enhancing lesions are seen.
== END | disposition home or self-care (01) ==
LOC: RADMRIMAIN 11:55
PROVIDERS: ATTEND Psychiatry & Neurology Neurology
DX: M47.812 Spondylosis without myelopathy or radiculopathy, cervical region (principal); G95.9 Disease of spinal cord, unspecified; G37.9 Demyelinating disease of central nervous system, unspecified
CPT/HCPCS: 72156; 72157; A9585

== ENCOUNTER 2022-03-18 07:03 | Emergency (ER) | payer OTHER ==
[2022-03-18 07:17] VITALS: BP 112/69; PULSE 72; RESP 16; TEMP 97.8
[2022-03-18] MEDS ORDERED: PROPARACAINE 0.5% OPHTH DROPS 15 ML BTL RIGHT EYE STA (07:27)
[2022-03-18] MEDS ORDERED: FLUORESCEIN STRIPS 1 MG STRIP RIGHT EYE ONE (07:29)
--- NOTE | 2022-03-18 07:33 | ED ---
General Adult HPI - General Chief complaint: Eye Problems Stated complaint: eye problem Time Seen by Provider: 03/18/22 07:15 Source: patient, RN notes reviewed, old records reviewed Mode of arrival: ambulatory Limitations: no limitations - History of Present Illness Initial comments: This is a 41-year-old female presents emergency Department complaining that she has pain in her right eye. Patient states yesterday while working outside she had a stick poked in the eye. Patient states she got up to go to work but the pain is worse than his redness and burning. Patient states she has no visual disturbances just hurts to open her eye and the light hurts when she her eye. Patient denies any other problems or injuries. - Related Data Previous Rx's Medication Instructions Recorded Ergocalciferol [Vitamin D2 50,000 unit PO Q72H #14 cap 07/17/19 (DRISDOL)] Omeprazole [PriLOSEC] 40 mg PO AC-BRKFST #5 capsule. 07/17/19 Tobramycin 0.3% Ophth Soln [Tobrex 1 drop RIGHT EYE Q4H #5 ml 03/18/22 0.3% Ophth Soln] Allergies Allergy/AdvReac Type Severity Reaction Status Date / Time No Known Allergies Allergy Verified 03/18/22 07:14 Review of Systems ROS Statement: Those systems with pertinent positive or pertinent negative responses have been documented in the HPI. ROS Other: All systems not noted in ROS Statement are negative. Past Medical History Past Medical History: No Reported History History of Any Multi-Drug Resistant Organisms: None Reported Past Surgical History: Appendectomy Additional Past Surgical History / Comment(s): D&C 2017 Past Anesthesia/Blood Transfusion Reactions: No Reported Reaction Past Psychological History: No Psychological Hx Reported Smoking Status: Current every day smoker Past Alcohol Use History: Occasional Past Drug Use History: None Reported - Past Family History Father Family Medical History: Myocardial Infarction ([place]) Mother Family Medical History: CVA/TIA General Exam - General Exam Comments Initial Comments: GENERAL Patient is well-developed and well-nourished. Patient is in mild distress. EYES Patient's pupils are equal and round. Extraocular motion is intact. Patient's right eye is injected. Fluorescein see stain will be applied. SKIN Unremarkable NEURO The patient is alert and oriented 3 PYSCH Patient has normal interpersonal interactions. MUSCULOSKELETAL Patient has all 4 extremities with full range of motion. Limitations: no limitations Course Vital Signs 03/18/22 07:14 Temperature 97.8 F Pulse Rate 72 Respiratory 16 Rate Blood Pressure 112/69 O2 Sat by Pulse 98 Oximetry Medical Decision Making - Medical Decision Making I put proparacaine in the patient's eye it numbed her eye completely. I used fluorescein strips and then I viewed the eye with the Sims lamp patient is a very small abrasion in the center of her cornea. Disposition Clinical Impression: Corneal abrasion Disposition: HOME SELF-CARE Condition: Good Prescriptions: Tobramycin 0.3% Ophth Soln [Tobrex 0.3% Ophth Soln] 1 drop RIGHT EYE Q4H #5 ml Is patient prescribed a controlled substance at d/c from ED?: No Referrals: Ruthie Falcon MD [Primary Care Provider] - 1-2 days Time of Disposition: 08:19
[2022-03-18] MEDS: DIPH,PERTUS(ACELL)TETVAC-LF 0.5 ML VIAL IM ONE ×2 (07:43→08:10)
== END 2022-03-18 08:34 | disposition home or self-care (01) ==
LOC: EC 07:03
DX: S05.01XA Injury of conjunctiva and corneal abrasion without foreign body, right eye, initial encounter (principal); F17.200 Nicotine dependence, unspecified, uncomplicated; Z23 Encounter for immunization; X58.XXXA Exposure to other specified factors, initial encounter
CPT/HCPCS: 90471; 90715; 99283

== ENCOUNTER 2022-10-24 18:16 | Emergency (ER) | payer MEDICAID ==
[2022-10-24 18:43] VITALS: RESP 20
[2022-10-24] MEDS ORDERED: ALBUTEROL NEBULIZED 2.5 MG/3 ML INHALATION STA (19:24)
[2022-10-24] MEDS ORDERED: predniSONE 20 MG TAB PO STA (19:25)
--- NOTE | 2022-10-24 19:28 | ED ---
URI HPI - General Chief Complaint: Upper Respiratory Infection Stated Complaint: cough, chest pain Time Seen by Provider: 10/24/22 18:50 Source: patient Mode of arrival: ambulatory Limitations: no limitations - History of Present Illness Initial Comments: This patient is a 42-year-old woman here to have reevaluation for cough, shortness of breath, that has been going on since the end of last week. The patient states she has no history of underlying lung disease. She states that last week she started having cough and shortness of breath. She went to urgent care where she was diagnosed with bronchitis. She was given a course of azithromycin but states that it has not helped way she is feeling. Patient is complaining of shortness of breath, cough, some congestion. The cough is nonproductive. She is not aware of any fever though she did have hot and cold feeling. MD Complaint: cough, other Onset/Timin -: days(s) Severity: moderate Consistency: constant Improves With: nothing Worsens With: nothing Context: sick contacts Associated Symptoms: cough, shortness of breath Treatments Prior to Arrival: antibiotics (Azithromycin) - Related Data Previous Rx's Medication Instructions Recorded Ergocalciferol [Vitamin D2 50,000 unit PO Q72H #14 cap 07/17/19 (DRISDOL)] Omeprazole [PriLOSEC] 40 mg PO AC-BRKFST #5 capsule. 07/17/19 Tobramycin 0.3% Ophth Soln [Tobrex 1 drop RIGHT EYE Q4H #5 ml 03/18/22 0.3% Ophth Soln] Albuterol Inhaler [Ventolin Hfa 2 puff INHALATION Q4HR PRN #8 gm 10/24/22 Inhaler] predniSONE 60 mg PO DAILY #30 tab 10/24/22 Allergies Allergy/AdvReac Type Severity Reaction Status Date / Time No Known Allergies Allergy Verified 03/18/22 07:14 Review of Systems ROS Statement: Those systems with pertinent positive or pertinent negative responses have been documented in the HPI. ROS Other: All systems not noted in ROS Statement are negative. Constitutional: Reports: as per HPI, fever, chills ENT: Reports: congestion Respiratory: Reports: cough, dyspnea, wheezes Cardiovascular: Denies: chest pain, orthopnea, edema, syncope Gastrointestinal: Denies: abdominal pain, vomiting, diarrhea Genitourinary: Denies: dysuria, hematuria Musculoskeletal: Denies: back pain Skin: Denies: rash Neurological: Denies: headache, weakness, numbness Past Medical History Past Medical History: No Reported History History of Any Multi-Drug Resistant Organisms: None Reported Past Surgical History: Appendectomy Additional Past Surgical History / Comment(s): D&C 2017 Past Anesthesia/Blood Transfusion Reactions: No Reported Reaction Past Psychological History: No Psychological Hx Reported Smoking Status: Current every day smoker Past Alcohol Use History: Occasional Past Drug Use History: None Reported - Past Family History Father Family Medical History: Myocardial Infarction ([place]) Mother Family Medical History: CVA/TIA General Exam Limitations: no limitations General appearance: alert, in no apparent distress Head exam: Present: atraumatic, normocephalic Eye exam: Present: normal appearance. Absent: scleral icterus, conjunctival injection ENT exam: Present: normal oropharynx Neck exam: Present: normal inspection Respiratory exam: Present: wheezes. Absent: respiratory distress, rales, rhonchi, stridor, accessory muscle use, decreased breath sounds Cardiovascular Exam: Present: regular rate, normal rhythm, normal heart sounds. Absent: systolic murmur, diastolic murmur, rubs, gallop GI/Abdominal exam: Present: soft. Absent: distended, tenderness, guarding, rebound, rigid, mass Extremities exam: Present: normal inspection, normal capillary refill. Absent: pedal edema, calf tenderness Neurological exam: Present: alert Skin exam: Present: warm, dry, intact, normal color. Absent: rash Course Vital Signs 10/24/22 10/24/22 10/24/22 18:25 18:42 19:50 Temperature 97.5 F L Pulse Rate 80 76 70 Respiratory 18 20 Rate Blood Pressure 135/86 O2 Sat by Pulse 93 L 97 Oximetry 10/24/22 10/24/22 20:06 20:38 Temperature 98 F Pulse Rate 76 74 Respiratory 20 Rate Blood Pressure 133/75 O2 Sat by Pulse 94 L Oximetry Medical Decision Making - Medical Decision Making Patient is a 42-year-old woman presenting with dyspnea. Exam consistent with acute bronchitis. Patient is started on steroid and beta agonist with good relief here. Chest x-ray obtained which does not reveal pulmonary infiltrate or cardiomegaly. Patient will be discharged with further course medication, discussed appropriate further care and follow-up as well as return parameters. Was pt. sent in by a medical professional or institution? @ -[No Did you speak to anyone other than the patient for history? @ -[No Did you review nursing and triage notes? @ -[agree Were old charts reviewed? @ -[No Differential Diagnosis? @ -[Differential Dyspnea: Coronary syndrome, arrhythmia, tamponade, asthma, COPD, pulmonary embolism, pneumonia, pneumothorax, pulmonary effusion, anaphylaxis, diabetic ketoacidosis, flailed chest, pulmonary contusion, diaphragmatic rupture, anemia, neuromuscular, this is not meant to be an all-inclusive list. EKG interpreted by me (3pts min.)? @ -[none] X-rays interpreted by me (1pt min.)? @ -[See chart CT interpreted by me (1pt min.)? @ -[none] U/S interpreted by me (1pt. min.)? @ -[none] What testing was considered but not performed? (CT, X-rays, U/S, labs)? Why? @ [None What meds were considered but not given? Why? @ -[none] Did you discuss the management of the patient with other professionals? @ -[None Did you reconcile home meds? @ -[none] Was smoking cessation discussed for >3mins.? @ -[none] Was critical care preformed (if so, how long)? @ -[none] Were there social determinants of health that impacted care today? How? (Homelessness, low income, unemployed, alcoholism, drug addiction, transportation, low edu. Level, literacy, decrease access to med. care, halfway, rehab)? @ -[No Was there de-escalation of care discussed even if they declined? (Discuss DNR or withdrawal of care, Hospice)? @ -[No What co-morbidities impacted this encounter? (DM, HTN, Smoking, COPD, CAD, Cancer, CVA, Hep., AIDS, mental health diagnosis, sleep apnea, morbid obesity)? @ -[None Was patient admitted / discharged? @ -Discharged Undiagnosed new problem with uncertain prognosis? @ -[none] Drug Therapy requiring intensive monitoring for toxicity (Heparin, Nitro, Insulin, Cardizem)? @ -[none] Were any procedures done? @ -[none] Diagnosis/symptom? @ -[1. Acute bronchitis Acute, or Chronic, or Acute on Chronic? @ -[default] Uncomplicated (without systemic symptoms) or Complicated (systemic symptoms)? @ -[Uncomplicated Side effects of treatment? @ -[none] Exacerbation, Progression, or Severe Exacerbation] @ -[no] Poses a threat to life or bodily function? @ -[no] - Lab Data Lab Results 10/24/22 Range/Units 19:02 Influenza Type A (PCR) Not Detected (Not Detectd) Influenza Type B (PCR) Not Detected (Not Detectd) RSV (PCR) Not Detected (Not Detectd) SARS-CoV-2 (PCR) Not Detected (Not Detectd) Disposition Clinical Impression: Bronchitis Disposition: HOME SELF-CARE Condition: Good Instructions (If sedation given, give patient instructions): Acute Bronchitis (ED) Prescriptions: predniSONE 60 mg PO DAILY #30 tab Albuterol Inhaler [Ventolin Hfa Inhaler] 2 puff INHALATION Q4HR PRN #8 gm PRN Reason: Wheezing Is patient prescribed a controlled substance at d/c from ED?: No Referrals: Ruthie Falcon MD [Primary Care Provider] - 1-2 days
--- NOTE | 2022-10-24 19:51 | XR ---
EXAMINATION TYPE: XR chest 2V DATE OF EXAM: 10/24/2022 7:46 PM COMPARISON: Chest radiographs from 07/14/2019 TECHNIQUE: XR chest 2V Frontal and lateral views of the chest. CLINICAL INDICATION:Female, 42 years old with history of dyspnea. New wheezing; FINDINGS: Lungs/Pleura: There is no evidence of pleural effusion, focal consolidation, or pneumothorax. Pulmonary vascularity: Unremarkable. Heart/mediastinum: Cardiomediastinal silhouette is unremarkable. Musculoskeletal: No acute osseous pathology. IMPRESSION: No acute cardiopulmonary disease/process.
[2022-10-24 20:39] VITALS: BP 133/75; PULSE 74; TEMP 98
== END 2022-10-24 20:39 | disposition home or self-care (01) ==
LOC: EC 18:16
DX: J40 Bronchitis, not specified as acute or chronic (principal); F17.200 Nicotine dependence, unspecified, uncomplicated; Z20.822 Contact with and (suspected) exposure to COVID-19
CPT/HCPCS: 94640; 87636; 71046; 99285; J7512

== ENCOUNTER → 2023-02-13 | Outpatient (CLI) | payer MEDICAID ==
--- NOTE | 2023-02-14 08:09 | MM ---
Reason for Exam: Screening (asymptomatic). Patient History: Menarche at age 13. First Full-Term at age 24. Premenopausal. Currently using Hormonal Contraceptives, starting at age 39. Last menstrual period: 02/09/2023 Risk Values: Kareen 5 year model risk: 0.5%. NCI Lifetime model risk: 9.9%. Tissue Density: The breast tissue is heterogeneously dense. This may lower the sensitivity of mammography. Findings: Analyzed By CAD. A few small benign-appearing round calcifications are scattered throughout the right breast. There is 5 mm circumscribed oval lesion in the posterior upper outer aspect right breast. This is suspected low-lying lymph node. Suggestion of larger obscured 10 mm lesion in the left breast CC image 28 towards the axilla suspected benign lymph node. Follow-up advised. There is no suspicious group of microcalcifications in either breast. Overall Assessment: Incomplete: need additional imaging evaluation, BI-RAD 0 Management: Diagnostic Breast Ultrasound of the left breast. Targeted ultrasound left axilla. Mammogram workup if ultrasound negative. [facility] will attempt to contact patient to return for supplemental views and ultrasound if indicated. Patient should continue monthly self-breast exams. A clinical breast exam by your physician is recommended on an annual basis. This exam should not preclude additional follow-up of suspicious palpable abnormalities. Note on Kareen scores and lifetime risk: 1. A Kareen score greater than 3% is considered moderate risk. If this is the case, consider specialist referral to assess eligibility for a risk reducing agent. 2. If overall lifetime risk for the development of breast cancer is 20% or higher, the patient may qualify for future screening with alternating mammogram and breast MRI. Electronically signed and approved by: Jermaine Mckeon M.D.
== END | disposition home or self-care (01) ==
LOC: RADMAMWWP 06:53
PROVIDERS: ATTEND Obstetrics & Gynecology
DX: Z12.31 Encounter for screening mammogram for malignant neoplasm of breast (principal)
CPT/HCPCS: 77063; 77067

== ENCOUNTER → 2023-02-22 | Outpatient (CLI) | payer MEDICAID ==
--- NOTE | 2023-02-22 07:44 | USB ---
Reason for Exam: Additional evaluation requested from abnormal screening. Patient History: Menarche at age 13. First Full-Term at age 24. Premenopausal. Currently using Hormonal Contraceptives, starting at age 39. Risk Values: Kareen 5 year model risk: 0.5%. NCI Lifetime model risk: 9.9%. Technique: Method: Targeted. Prior Study Comparison: 02/13/2023 Bilateral MG 3D screening mammo w/cad, [facility]. Findings: The upper outer quadrant of the left breast, the axilla of the left breast and the retroareolar of the left breast were scanned. Targeted ultrasound left breast upper outer quadrant 12:00 to 3:00 including these axilla. * At the 3:00 position, 9 cm from the nipple, there is a 8 x 6 x 4 mm oval complex cyst versus cyst cluster, possible mammographic correlate. * In addition, there is a borderline-sized lymph node in left axilla measuring 2.2 x 1.4 x 0.8 cm. Cortex show smooth thickening up to 4 mm. Fatty hilum is maintained.-month follow-up recommended. * 6 month follow-up recommended for both of these findings. * No other solid or cystic lesion. Overall Assessment: Probably benign, BI-RAD 3 Management: Diagnostic Mammogram of both breasts in 6 months. Diagnostic Breast Ultrasound of the left breast in 6 months. Follow-up mammogram for the bilateral areas of nodularity in the outer aspect of the breasts. Likely correlates to the complex cyst versus cluster seen on ultrasound on the left side. Probable intramammary lymph node on the right. A clinical breast exam by your physician is recommended on an annual basis and results should be correlated with mammographic findings. This exam should not preclude additional follow-up of suspicious palpable abnormalities. Results were given to the patient verbally at the time of exam. Electronically signed and approved by: Ovi Stallings M.D. Radiologist
== END | disposition home or self-care (01) ==
LOC: RADUSWWP 07:01
PROVIDERS: ATTEND Obstetrics & Gynecology
DX: R92.8 Other abnormal and inconclusive findings on diagnostic imaging of breast (principal)

== ENCOUNTER → 2023-10-05 | Outpatient (CLI) | payer MEDICAID ==
--- NOTE | 2023-10-05 10:13 | MM ---
Reason for Exam: Follow-up at short interval from prior study. Last screening mammogram was performed 7 month(s) ago. Patient History: Menarche at age 13. First Full-Term at age 24. Premenopausal. Currently using Hormonal Contraceptives, starting at age 39. Risk Values: Kareen 5 year model risk: 0.6%. NCI Lifetime model risk: 9.8%. Tissue Density: There are scattered fibroglandular densities. Findings: Analyzed By CAD. The bilateral areas of asymmetric density and nodularity remain unchanged for 6 months. Ongoing short interval follow-up recommended. No significant change identified. Overall Assessment: Probably benign, BI-RAD 3 Management: Diagnostic Mammogram of both breasts in 6 months. . Results were given to the patient verbally at the time of exam. Patient should continue monthly self-breast exams. A clinical breast exam by your physician is recommended on an annual basis. This exam should not preclude additional follow-up of suspicious palpable abnormalities. Note on Kareen scores and lifetime risk: 1. A Kareen score greater than 3% is considered moderate risk. If this is the case, consider specialist referral to assess eligibility for a risk reducing agent. 2. If overall lifetime risk for the development of breast cancer is 20% or higher, the patient may qualify for future screening with alternating mammogram and breast MRI. Electronically signed and approved by: Ovi Stallings M.D. Radiologist
== END | disposition home or self-care (01) ==
LOC: RADMAMWWP 09:43
PROVIDERS: ATTEND Internal Medicine
DX: R92.323 Mammographic fibroglandular density, bilateral breasts (principal)
CPT/HCPCS: 77062; 77066

== ENCOUNTER 2025-01-02 00:32 | Emergency (ER) | payer MEDICAID ==
[2025-01-02 00:39] VITALS: BP 136/82; PULSE 83; RESP 18; TEMP 98.1
--- NOTE | 2025-01-02 01:02 | ED ---
Lower Extremity Injury HPI - General Chief Complaint: Extremity Injury, Lower Stated Complaint: R Hip/Groin Pain Time Seen by Provider: 01/02/25 00:48 Source: patient, RN notes reviewed Mode of arrival: ambulatory Limitations: no limitations - History of Present Illness MD Complaint: hip injury - Related Data Previous Rx's Medication Instructions Recorded Ergocalciferol [Vitamin D2 50,000 unit PO Q72H #14 cap 07/17/19 (DRISDOL)] Omeprazole [PriLOSEC] 40 mg PO AC-BRKFST #5 capsule.dr 07/17/19 Tobramycin 0.3% Ophth Soln [Tobrex 1 drop RIGHT EYE Q4H #5 ml 03/18/22 0.3% Ophth Soln] Albuterol Inhaler [Ventolin Hfa 2 puff INHALATION Q4HR PRN #8 gm 10/24/22 Inhaler] predniSONE 60 mg PO DAILY #30 tab 10/24/22 Allergies Allergy/AdvReac Type Severity Reaction Status Date / Time No Known Allergies Allergy Verified 01/02/25 00:39 Review of Systems ROS Statement: Those systems with pertinent positive or pertinent negative responses have been documented in the HPI. ROS Other: All systems not noted in ROS Statement are negative. Past Medical History Past Medical History: No Reported History Additional Past Medical History / Comment(s): spinal lesions History of Any Multi-Drug Resistant Organisms: None Reported Past Surgical History: Appendectomy Additional Past Surgical History / Comment(s): D&C 2017 Past Anesthesia/Blood Transfusion Reactions: No Reported Reaction Past Psychological History: No Psychological Hx Reported Smoking Status: Current every day smoker Past Alcohol Use History: Occasional Past Drug Use History: None Reported - Past Family History Father Family Medical History: Myocardial Infarction ([place]) Mother Family Medical History: CVA/TIA General Exam Limitations: no limitations General appearance: alert, in no apparent distress Head exam: Present: atraumatic, normocephalic, normal inspection Eye exam: Present: normal appearance, PERRL, EOMI. Absent: scleral icterus, conjunctival injection, periorbital swelling ENT exam: Present: normal exam, mucous membranes moist Neck exam: Present: normal inspection. Absent: tenderness, meningismus, lymphadenopathy Respiratory exam: Present: normal lung sounds bilaterally. Absent: respiratory distress, wheezes, rales, rhonchi, stridor Cardiovascular Exam: Present: regular rate, normal rhythm, normal heart sounds. Absent: systolic murmur, diastolic murmur, rubs, gallop, clicks GI/Abdominal exam: Present: soft, normal bowel sounds. Absent: distended, tenderness, guarding, rebound, rigid Extremities exam: Present: full ROM, tenderness (Positive raise anterior hip flexor point tenderness. Positive pain with right hip flexion), normal capillary refill. Absent: pedal edema, joint swelling, calf tenderness Back exam: Present: normal inspection Neurological exam: Present: alert, oriented X3, CN II-XII intact Psychiatric exam: Present: normal affect, normal mood Skin exam: Present: warm, dry, intact, normal color. Absent: rash Course Vital Signs 01/02/25 00:36 Temperature 98.1 F Pulse Rate 83 Respiratory 18 Rate Blood Pressure 136/82 O2 Sat by Pulse 97 Oximetry Medical Decision Making - Medical Decision Making Was pt. sent in by a medical professional or institution (, PA, FUNDING COORDINATOR, urgent care, hospital, or long term...) When possible be specific @ -[No] Did you speak to anyone other than the patient for history (EMS, parent, family, police, friend...)? What history was obtained from this source @ -[No] Did you review nursing and triage notes (agree or disagree)? Why? @ -[I reviewed and agree with nursing and triage notes] Were old charts reviewed (outside hosp., previous admission, EMS record, old EKG, old radiological studies, urgent care reports/EKG's, long term records)? Report findings @ -[No old charts were reviewed] Differential Diagnosis (chest pain, altered mental status, abdominal pain women, abdominal pain men, vaginal bleeding, weakness, fever, dyspnea, syncope, headache, dizziness, GI bleed, back pain, seizure, CVA, palpatations, mental health, musculoskeletal)? @ -Differential Musculoskeletal Muscular strain, contusion, ligament sprain, fracture, arthritis, septic arthritis, bursitis, cellulitis, muscle spasm, nerve compression, DVT, arterial occlusion, herpes zoster, electrolyte abnormality, tumor.... This is not meant to be in all inclusive list EKG interpreted by me (3pts min.). @ -Not done X-rays interpreted by me (1pt min.). @ -[None done] CT interpreted by me (1pt min.). @ -[None done] U/S interpreted by me (1pt. min.). @ -[None done] What testing was considered but not performed or refused? (CT, X-rays, U/S, labs)? Why? @ -[None] What meds were considered but not given or refused? Why? @ -Patient declined Motrin sent to pharmacy Did you discuss the management of the patient with other professionals (professionals i.e. , PA, FUNDING COORDINATOR, lab, RT, psych nurse, child welfare social worker, plastics fabrication supervisor, teacher, security vehicle patrol officer, case picker)? Give summary @ -[No] Was smoking cessation discussed for >3mins.? @ -[No] Was critical care preformed (if so, how long)? @ -[No] Were there social determinants of health that impacted care today? How? (Homelessness, low income, unemployed, alcoholism, drug addiction, tr ansportation, low edu. Level, literacy, decrease access to med. care, [facility], rehab)? @ -[No] Was there de-escalation of care discussed even if they declined (Discuss DNR or withdrawal of care, Hospice)? DNR status @ -[No] What co-morbidities impacted this encounter? (DM, HTN, Smoking, COPD, CAD, Cancer, CVA, ARF, Chemo, Hep., AIDS, mental health diagnosis, sleep apnea, morbid obesity)? @ -[None] Was patient admitted / discharged? Hospital course, mention meds given and route, prescriptions, significant lab abnormalities, going to OR and other pertinent info. @ -[hospital course] Undiagnosed new problem with uncertain prognosis? @ -[No] Drug Therapy requiring intensive monitoring for toxicity (Heparin, Nitro, Insulin, Cardizem)? @ -[No] Were any procedures done? @ -[No] Diagnosis/symptom? @ -Hip tendinitis Acute, or Chronic, or Acute on Chronic? @ -Acute Uncomplicated (without systemic symptoms) or Complicated (systemic symptoms)? @ -Uncomplicated Side effects of treatment? @ -[No] Exacerbation, Progression, or Severe Exacerbation? @ -[No] Poses a threat to life or bodily function? How? (Chest pain, [place], [place], pneumonia, PE, COPD, DKA, ARF, appy, cholecystitis, CVA, Diverticulitis, Homicidal, Suicidal, threat to staff... and all critical care pts) @ -[No] Disposition Clinical Impression: Right hip tendinitis Disposition: HOME SELF-CARE Condition: Good Instructions (If sedation given, give patient instructions): Tendinitis (ED) Additional Instructions: Alternate Tylenol/Motrin every 4 hours for pain. Cold compress to affected area for 10 minutes up to 4 times daily. Rest, ice, compression, elevation. Follow-up with orthopedics as needed. Is patient prescribed a controlled substance at d/c from ED?: No Referrals: Ruthie Falcon MD [Primary Care Provider] - 1-2 days Time of Disposition: 01:02
[2025-01-02] MEDS: KETOROLAC 15 MG/ML 1 ML VIAL IM STA (01:22)
== END 2025-01-02 01:24 | disposition home or self-care (01) ==
LOC: EC 00:32
DX: M76.9 Unspecified enthesopathy, lower limb, excluding foot (principal); F17.200 Nicotine dependence, unspecified, uncomplicated
CPT/HCPCS: 99283; 96372; J1885

== ENCOUNTER → 2025-02-20 | Outpatient (CLI) | payer MEDICAID ==
--- NOTE | 2025-02-23 06:16 | MR ---
EXAMINATION TYPE: MR tspine/lspine wo/w con DATE OF EXAM: 02/20/2025 COMPARISON: MRI thoracic and lumbar spine July 16, 2019. HISTORY: Tingling and numbness, MS. TECHNIQUE: Multiplanar, multisequence imaging of thoracic in the lumbar spine are performed without a nd with IV contrast, patient injected with 9 cc of gadolinium. FINDINGS: T-SPINE: Spinal cord shows normal course and caliber as it courses the thoracic spine on current study on sagi ttal images. Vertebral body heights and alignment are stable and satisfactory. Disc space heights and hydration are maintained. Small osseous hemangioma posterior superior T8 vertebra sagittal image 6 i s redemonstrated. No suspicious enhancement is seen. Review of the axial images redemonstrate stable suspicious subtle T2 hyperintense lesion right later al aspect of spinal cord seen best axial images 10 through 12 at the T9-T10 disc space level series 9 01. This is still not well identified on sagittal images. No definitive new additional cord lesions. No suspicious enhancement. Visualized thorax and upper abdomen show no new suspicious abnormality. IMPRESSION: Stable subtle T2 hyperintense lesion right lateral spinal cord T9-T10 disc space level l ikely reflecting demyelinating plaque. No new or enhancing lesions are seen. L-SPINE: Sagittal images of the lumbar spine show vertebral body heights and alignment to appear stable and sa tisfactory. There is disc desiccation with mild disc space narrowing at L4-L5 level redemonstrated. The conus medullaris remains normal in position and signal ending superior L1 level. The bone marrow signal intensity is within normal limits. No suspicious postcontrast enhancement is seen. Axial images show T12-L1 through L2-L3 levels remain within normal limits. Axial images at L3-L4 level show new mild broad disc bulge minimally effacing the anterior thecal sac . There is mild left greater than right anterior inferior neural foraminal narrowing seen. Axial images at L4-L5 level shows central disc protrusion and annular tear minimally effacing the ant erior thecal sac. Bilateral neural foramina are patent. Mild facet arthropathy bilaterally is present . Axial images at the L5-S1 level show mild facet arthropathy bilaterally. No disc herniation. Spinal c anal is preserved. Enlarged uterus with multiple fibroids is partially imaged. IMPRESSION: Some mild multilevel degenerative change in the mid to lower lumbar spine is seen as deta iled above. Note is made of enlarged fibroid type uterus partially imaged. [facility], , 02/23/2025 6:13 AM
== END | disposition home or self-care (01) ==
LOC: RADMRIMAIN 08:03
PROVIDERS: ATTEND Internal Medicine
DX: M51.369 Other intervertebral disc degeneration, lumbar region without mention of lumbar back pain or lower extremity pain (principal); G35 Multiple sclerosis; M47.816 Spondylosis without myelopathy or radiculopathy, lumbar region; D25.9 Leiomyoma of uterus, unspecified
CPT/HCPCS: 72157; 72158; A9585